=== PATIENT | female | born 1960 | race Caucasian/White ===

== ENCOUNTER → 2019-11-05 14:22 | Outpatient (ROUT) | payer BC, SELFPAY ==
[2019-11-05 15:22] LABS: Add Manual Diff / Slide Review NO; Basophils Absolute Auto 0 /uL (0-100); Basophils Percent Auto 0.5 % (0-2); Eosinophils Absolute Auto 200 /uL (0-450); Eosinophils Percent Auto 4.8 % (2-4); Hematocrit 43.2 % (36-46); Hemoglobin 14.5 g/dL (12.0-16.0); Lymphocytes Absolute Auto 1800 /uL (1100-4500); Lymphocytes Percent Auto 39.8 % (25-40); Mean Corpuscular HGB Conc 33.6 % (30-36); Mean Corpuscular Hemoglobin 32.5 PG (26-34); Mean Corpuscular Volume 96.6 fL (80-100); Monocytes Absolute Auto 400 /uL (0-900); Neutrophils Absolute Auto 2100 /uL (1500-7000); Neutrophils Percent Auto 45.9 % (50-75); Platelet Count 275 X10^3/uL (150-400); Red Blood Cell Count 4.48 X10^6/uL (4.0-5.2); Red Cell Distribution Width 13.2 % (11.6-14.8); White Blood Cell Count 4.5 X10^3/uL (4.5-11.0)
[2019-11-05 15:28] LABS: Alanine Aminotransferase 19 IU/L (<35); Albumin 4.4 g/dL (3.5-5.0); Albumin Globulin Ratio 1.7 (1.0-2.8); Alkaline Phosphatase 84 U/L (38-126); Aspartate Aminotransferase 26 IU/L (14-36); BUN Creatinine Ratio 22.2 (6-22); Bilirubin Total 0.6 mg/dL (0.2-1.3); Blood Urea Nitrogen 16 mg/dL (7-17); Carbon Dioxide 31 mmol/L (22-32); Chloride 101 mmol/L (98-107); Cholesterol 199 mg/dL (140-199); Estimated Glomerular Filt Rate > 60.0 mL/min (>60); Globulin 2.6 g/dL (1.7-4.1); Glucose 92 mg/dL (80-110); HDL Cholesterol 62 mg/dL (40-60); HEMOLYSIS < 15 (0-50); LDL Cholesterol Calculated 108 mg/dL (<100); Potassium 4.3 mmol/L (3.4-5.1); Sodium 137 mmol/L (137-145); Triglycerides 143 mg/dL (35-150)
[2019-11-05 15:46] LABS: Vitamin D 25 Hydroxy (D3) 31.8 ng/mL (30.0-100.0)
[2019-11-05 16:17] LABS: Vitamin B12 915 pg/mL (239-931)
== END ==
PROVIDERS: PCP Physician Assistant Medical; Visit Provider Physician Assistant
DX: K21.0 Gastro-esophageal reflux disease with esophagitis (principal); E78.5 Hyperlipidemia, unspecified; N95.1 Menopausal and female climacteric states; E55.9 Vitamin D deficiency, unspecified; D51.9 Vitamin B12 deficiency anemia, unspecified
CPT/HCPCS: 80053; 80061; 82306; 82607; 85025

== ENCOUNTER → 2020-07-17 15:33 | Outpatient (CLI) | payer BC, SELFPAY ==
--- NOTE | 2020-07-17 | DI.RAD.S_ITS ---
PROCEDURE: XR HIP W PEL IF DONE LT 2V INDICATIONS: left hip pain TECHNIQUE: AP pelvis with lateral view(s) of the left hip(s). COMPARISON: None. FINDINGS: Bones: No fracture. Lumbar spondylosis and facet arthropathy. Expected alignment of right hip arthroplasty. Moderate to severe left hip joint degeneration. Scattered degenerative subchondral sclerosis and spurring. Soft tissues: The visualized bowel gas pattern is normal. No suspicious soft tissue calcifications. IMPRESSION: Moderate to severe left hip joint degeneration. Dictated by: Temo Sosa M.D. on 07/17/2020 at 16:42 Approved by: Temo Sosa M.D. on 07/17/2020 at 16:43
--- NOTE | 2020-07-17 | DI.RAD.S_ITS ---
PROCEDURE: XR KNEE LT 1TO2V INDICATIONS: left knee pain TECHNIQUE: 2 views of the knee were acquired. COMPARISON: None. FINDINGS: Bones: No fracture. Scattered degenerative subchondral sclerosis and spurring. Joint spaces appear grossly preserved. Soft tissues: No joint effusion. No suspicious soft tissue calcifications. IMPRESSION: Degenerative spurring and sclerosis. If the patient's pain or other symptoms persist, consider further evaluation with MRI Dictated by: Temo Sosa M.D. on 07/17/2020 at 16:54 Approved by: Temo Sosa M.D. on 07/17/2020 at 16:55
== END ==
PROVIDERS: PCP Physician Assistant; Referring Provider Physician Assistant; Visit Provider Physician Assistant
DX: M25.562 Pain in left knee (principal); M25.552 Pain in left hip; M16.12 Unilateral primary osteoarthritis, left hip
CPT/HCPCS: 73502; 73560

== ENCOUNTER → 2020-07-21 09:40 | Outpatient (CLI) | payer BC, SELFPAY ==
--- NOTE | 2020-07-21 09:43 | DI.MRI.S_ITS ---
PROCEDURE: MR KNEE LT WO CON INDICATIONS: Knee pain. TECHNIQUE: Noncontrast sagittal PD fast spin echo and T2 fast spin echo with fat saturation, sagittal 3-D FLASH with fat saturation; coronal T1 spin echo and PD fast spin echo with fat saturation, and axial PD fast spin echo with fat saturation through the knee. COMPARISON: [facility], CR, XR KNEE LT 1TO2V, 07/17/2020, 15:56. FINDINGS: Image quality: Excellent. Menisci: Medial extrusion of the medial meniscus. Linear oblique and amorphous high signal intensity within the anterior horn, body, and posterior horn medial meniscus is present, demonstrating superior and inferior articular surface extension, indicating complex tearing. Lateral meniscus is intact. Cruciate ligaments: The anterior and posterior cruciate ligaments appear intact. Moderate fluid signal intensity along the course of the anterior cruciate ligament is present, consistent with myxoid degeneration. Medial structures: The medial collateral ligament appears intact. Visualized portions of the pes anserinus tendons appear normal. No abnormal bursal fluid. Lateral structures: The lateral collateral ligament, long and short heads of the biceps femoris tendon appear intact. The popliteus tendon appears normal. Iliotibial band appears normal. Anterior structures: The quadriceps and patellar tendons appear intact. Mild lateral patellar subluxation. No femoral trochlear dysplasia or ventral trochlear prominence. No edema in the infrapatellar fat pad. Bones and cartilage: No bone marrow contusions or fractures. Mild tricompartmental periarticular osteophyte formation. Mild subchondral degenerative marrow edema within the mid/anterior weight-bearing aspects of the medial tibial plateau. Severe articular cartilage loss diffusely overlies the weight-bearing aspects of the medial femoral condyle and medial tibial plateau. Mild articular cartilage loss diffusely overlies the weight-bearing aspects of the lateral femoral condyle and lateral tibial plateau. There is a superimposed high-grade region of articular cartilage loss overlying the posterior weight-bearing aspect of the lateral femoral condyle measuring 10 mm anteroposterior by 4 mm transverse. Articular cartilage fibrillation overlies the patellar apex and medial patellar facet. Superimposed moderate articular cartilage loss overlies the patellar apex and medial patellar facet. Joint space: There is a small knee joint effusion and a small Danielle's cyst. 3 mm diameter intra-articular loose body within the patellofemoral compartment medially. Normal appearing synovial plicae are incidentally noted. IMPRESSION: 1. Tricompartmental osteoarthritis with associated articular cartilage loss. 2. Complex tearing of the medial meniscus. 3. Knee joint effusion, Danielle's cyst, and intra-articular loose body. 4. Myxoid degeneration of the anterior cruciate ligament. Dictated by: Trinidad Peterson M.D. on 07/21/2020 at 11:14 Approved by: Trinidad Pteerson M.D. on 07/21/2020 at 11:18
== END ==
PROVIDERS: PCP Physician Assistant; Referring Provider Physician Assistant; Visit Provider Physician Assistant
DX: M25.562 Pain in left knee (principal); M17.12 Unilateral primary osteoarthritis, left knee; S83.232A Complex tear of medial meniscus, current injury, left knee, initial encounter; M25.462 Effusion, left knee; M71.22 Synovial cyst of popliteal space [Baker], left knee
CPT/HCPCS: 73721

== ENCOUNTER → 2021-10-11 12:41 | Outpatient (CLI) | payer BC, SELFPAY ==
--- NOTE | 2021-10-11 12:45 | DI.RAD.S_ITS ---
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 COMPARISON: [facility], , XR HIP W PEL IF DONE LT 2V, 07/17/2020, 15:55. FINDINGS: Bones: Right hip arthroplasty is intact. There is severe left hip joint space narrowing, subchondral cystic change, and mild deformity of the left femoral head. No acute fracture or dislocation. Soft tissues: The visualized bowel gas pattern is normal. No suspicious soft tissue calcifications. IMPRESSION: Severe left hip osteoarthritis. Dictated by: Rocio Waite M.D. on 10/11/2021 at 15:04 Approved by: Rocio Waite M.D. on 10/11/2021 at 15:08
--- NOTE | 2021-10-11 12:45 | DI.RAD.S_ITS ---
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 COMPARISON: None. FINDINGS: Bones: 5 [id number] vertebrae are present. There is loss of the expected lumbar lordosis. There is grade 1 L3 on L4 retrolisthesis. Degenerative changes including osteophytosis and sclerosis are present within the mid and lower lumbar spine. Facet sclerosis is present at L5-S1. There is 16? right convex scoliosis at L2-3. No vertebral body compression fractures. No suspicious bony lesions. Soft tissues: Overlying bowel gas pattern is normal. No suspicious soft tissue calcifications. IMPRESSION: Degenerative change and mild right convex scoliosis. Dictated by: Rocio Waite M.D. on 10/11/2021 at 15:08 Approved by: Rocio Waite M.D. on 10/11/2021 at 15:12
== END ==
PROVIDERS: PCP Physician Assistant; Referring Provider Physician Assistant; Visit Provider Physician Assistant
DX: M47.816 Spondylosis without myelopathy or radiculopathy, lumbar region; M41.86 Other forms of scoliosis, lumbar region; M16.2 Bilateral osteoarthritis resulting from hip dysplasia; M54.50 Low back pain, unspecified; G89.29 Other chronic pain
CPT/HCPCS: 72100; 73502